=== PATIENT | male | born 1975 | race Caucasian/White ===

== ENCOUNTER 2016-10-21 21:07 | Emergency (ER) | payer OTHER ==
[~2016-10-21] VITALS: Ht 182.9 cm; Wt 152.0 kg
[~2016-10-21 21:07] MED LIST: EXEN10PE SQ; GLIM4 PO; METF-324 PO; ROBA750T3 PO
[2016-10-21 21:23] VITALS: BP 143/89; PULSE 76; RESP 18; TEMP 98.1; O2SAT 94
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
[2016-10-21] MEDS ORDERED: METF1000 PO (21:40)
[2016-10-21] MEDS ORDERED: METO25TA3 PO (21:40)
[2016-10-21] MEDS ORDERED: LANTUS2P SQ (21:40)
[2016-10-21] MEDS ORDERED: GLIM2TAB PO (21:40)
[2016-10-21] MEDS ORDERED: ONDANSETRON ODT 4 MG TAB PO ONE (22:00)
[2016-10-21] MEDS ORDERED: KETOROLAC TROMETHAMINE 60 MG/2 ML (IM) VIAL IM ONE (22:00)
[2016-10-21] MEDS ORDERED: CYCL1TAB29 PO (22:22)
[2016-10-21] MEDS ORDERED: NAPR500 PO (22:22)
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
[2016-10-21] MEDS ORDERED: ORPHENADRINE INJ 60 MG/2 ML AMP IM ONE (23:00)
== END 2016-10-21 23:27 | disposition home or self-care (01) ==
LOC: PHEFT 21:07
DX: M54.5 Low back pain (principal); M54.2 Cervicalgia; M25.512 Pain in left shoulder; M79.602 Pain in left arm; E11.9 Type 2 diabetes mellitus without complications; I10 Essential (primary) hypertension; Z79.4 Long term (current) use of insulin; Z86.79 Personal history of other diseases of the circulatory system; V49.88XA Car occupant (driver) (passenger) injured in other specified transport accidents, initial encounter; Y92.481 Parking lot as the place of occurrence of the external cause
CPT/HCPCS: 72125; 72131; 96372; 99284; J1885; J2360